=== PATIENT | female | born 1945 | race Caucasian/White ===

== ENCOUNTER 2019-10-29 17:07 | Emergency (ER) | payer MEDICARE ==
[~2019-10-29] VITALS: Wt 72.6 kg
[2019-10-29] MEDS ORDERED: FLAGYL500 MG PO (17:53)
[2019-10-29] MEDS ORDERED: VIBRAMYCIN100 MG PO (17:53)
[2019-10-29] MEDS ORDERED: CLINDAMYCIN HC300 MG PO (18:05)
== END 2019-10-29 18:33 | disposition home or self-care (01) ==
LOC: ED 17:07
DX: S61.452A Open bite of left hand, initial encounter (principal); W55.01XA Bitten by cat, initial encounter; Y93.89 Activity, other specified; Y92.89 Other specified places as the place of occurrence of the external cause; Y99.8 Other external cause status

== ENCOUNTER 2023-07-28 15:45 | Emergency (ER) | payer MEDICARE ==
[~2023-07-28] VITALS: Ht 157.4 cm; Wt 72.6 kg
[~2023-07-28 15:45] MED LIST: CLINDAMYCIN HC300 MG PO; FLAGYL500 MG PO; VIBRAMYCIN100 MG PO
[2023-07-28] MEDS ORDERED: ACETAMINOPHEN 325 MG TAB PO ONE (16:10)
[2023-07-28] MEDS ORDERED: HYDROCODONE-AC1 EAC1 PO (19:15)
[2023-07-28] MEDS ORDERED: Acetaminophen/Hydrocodone 5 MG/325 MG TABLET PO ONE (19:35)
== END 2023-07-28 19:34 | disposition home or self-care (01) ==
LOC: ED 15:45
DX: S32.10XA Unspecified fracture of sacrum, initial encounter for closed fracture (principal); S09.8XXA Other specified injuries of head, initial encounter; M25.511 Pain in right shoulder; I10 Essential (primary) hypertension; E78.5 Hyperlipidemia, unspecified; Z88.6 Allergy status to analgesic agent; Z88.0 Allergy status to penicillin; Z88.2 Allergy status to sulfonamides; Z88.8 Allergy status to other drugs, medicaments and biological substances; W01.198A Fall on same level from slipping, tripping and stumbling with subsequent striking against other object, initial encounter; Y93.89 Activity, other specified; Y92.002 Bathroom of unspecified non-institutional (private) residence as the place of occurrence of the external cause; Y99.8 Other external cause status